=== PATIENT | male | born 1950 | race Caucasian/White ===

== ENCOUNTER 2018-04-29 08:14 | Emergency (ER) | payer OTHER, MEDICARE ==
[~2018-04-29] VITALS: Ht 172.7 cm; Wt 95.3 kg
--- NOTE | ~2018-04-29 | EKG ---
[place] [address] [facility] [place] [address] ELECTROCARDIOGRAM REPORT Name: RADHA LOMBARDI Room #: DEP Ronald#: [id number] Admission: 04/29/18 Attend Phys: Discharge: 04/29/18 Date of : 48 Report #: [id number] THIS REPORT FOR: //name// [facility] ED Test Date: 2018-04-29 Test Time: 08:54:07 Pat Name: RADHA LOMBARDI Department: Room: Gender: Director Of Strategic Programs: Diane DAVEY : 1950 Requested By: Morgan Montanez Order Number: [id number] MD: Portillo Matthews Measurements Intervals [place] Rate: 80 P: 49 NV: 174 QRS: -27 QRSD: 100 T: 30 QT: 429 QTc: 495 Interpretive Statements Sinus rhythm Borderline left axis deviation Borderline T abnormalities, anterior leads Borderline prolonged QT interval Compared to ECG 05/29/2013 18:09:18 Sinus tachycardia no longer present Electronically Signed On 04-30-2018 12:45:41 CDT by Portillo Matthews [email or web address] <ELECTRONICALLY SIGNED> By: Portillo Matthews MD, [facility] 04/30/18 [phone] Portillo Matthews MD, [facility] /EPI
[~2018-04-29 08:14] MED LIST: ACTOS 30 MG TAB30 M1 PO; ACTOS 45 MG45 M1 PO; ADULT LOW DOSE81 MG PO; ASPIRIN81 M2 PO; BACTRIM DS TAB1 EACH PO; COZAAR 25 MG TA25 MG PO; COZAAR100 MG PO; EFFEXOR XR150 MG PO; FOLTX1 TAB PO; GLUCOPHAGE1000 MG PO; GLUCOPHAGE500 MG PO; GLUMETZA1000 PO; JANUVIA100 MG PO; JANUVIA50 MG PO; MAGOX 400400 MG PO; MULTIVITAMINS PO; NIASPAN 500 MG500 M1 PO; TRICOR145 MG PO; TRICOR48 MG PO; VENLAFAXINE HCL25 MG PO; VITAMIN D32000 UNIT PO; VYTORIN 10-201 EACH PO; VYTORIN 10-401 EACH PO; ZETIA10 MG PO
[2018-04-29 08:50] LABS: ABSOLUTE NEUTROPHILS 7.1 thou/uL (1.4-8.2); BASOPHILS 0.7 % (0.0-2.0); EOSINOPHILS 0.9 % (0.0-3.0); HEMATOCRIT 43.2 % (42.0-52.0); HEMOGLOBIN 14.7 gm/dL (14.0-18.0); LYMPHOCYTES 16.9 % (24.0-44.0); MCH 28.3 pg (26.0-34.0); MCV 83.2 fL (80.0-100.0); MONOCYTES 6.9 % (1.0-8.0); PLATELET COUNT 306 thou/uL (150-400); POLYS 74.6 % (36.0-66.0); RBC 5.19 mil/uL (4.50-6.00); RDW 14.8 % (10.5-14.5); WBC 9.5 thou/uL (4.0-11.0)
[2018-04-29 09:06] LABS: ANION GAP 13 mmol/L (7-16); BUN 20 mg/dL (7-18); CHLORIDE 104 mmol/L (98-107); CO2 20 mmol/L (21-32); CREATININE 1.3 mg/dL (0.7-1.3); GLUCOSE 152 mg/dL (74-106); POTASSIUM 3.6 mmol/L (3.5-5.1); SODIUM 137 mmol/L (136-145)
[2018-04-29 09:14] LABS: ALBUMIN 3.8 g/dL (3.4-5.0); LIPASE 135 U/L (73-393); SGOT 25 U/L (15-37); SGPT 29 U/L (30-65); TOTAL BILIRUBIN 0.7 mg/dL (<0.1-1.0); TOTAL PROTEIN 7.2 g/dL (6.4-8.2)
[2018-04-29 09:15] LABS: TROPONIN-I < 0.04 ng/mL (<0.06)
[2018-04-29] MEDS ORDERED: ANTIVERT25 MG PO (09:22)
== END 2018-04-29 09:52 | disposition home or self-care (01) ==
LOC: ER 08:14
PROVIDERS: Emergency Medicine
DX: R11.2 Nausea with vomiting, unspecified (principal); R42 Dizziness and giddiness; I10 Essential (primary) hypertension; E11.9 Type 2 diabetes mellitus without complications; E78.5 Hyperlipidemia, unspecified

== ENCOUNTER → 2018-06-11 | Outpatient (CLI) | payer OTHER, MEDICARE ==
[~2018-06-11] VITALS: Ht 170.2 cm; Wt 88.0 kg
[~2018-06-11] MED LIST changes: +ANTIVERT25 MG PO; +ASPIR 8181 MG PO; +ATORVASTATIN CA40 MG PO; +CENTRUM SILVER1 EAC2 PO; +FOLINIC-PLUS C1 EACH PO; +VITAMIN D-32000 UNIT PO; +WELLBUTRIN SR150 MG PO
--- NOTE | ~2018-06-11 | P ---
[facility] [place] [address] PROCEDURE REPORT Name: RADHA LOMBARDI Room #: REG [facility].#: [id number] Admission: 06/11/18 Attend Phys: Carlos Eduardo Hernandez Discharge: Date of : 48 Report #: [id number] THIS REPORT FOR: //name// CC: Carlos Eduardo Narayan MD DATE OF SERVICE: 06/11/2018 PROCEDURE PERFORMED: Colonoscopy with biopsies. HISTORY OF PRESENT ILLNESS: The patient is a 67-year-old male who presents today for routine screening colonoscopy. He denies any symptoms. No family history of colon cancer. DESCRIPTION OF PROCEDURE: The risks and benefits of the procedure were explained to the patient, those risks including but not limited to bleeding, perforation, the risk of sedation. He understood these risks and gave informed consent. Sedation was given using propofol per anesthesia. Next, a digital rectal exam was initially performed, which was normal. Next, using a standard Olympus colonoscope, the scope was placed in the patient's anus and advanced under direct vision to the cecum. The overall prep was excellent. The cecum and ileocecal valve were normal in appearance. In the ascending colon, there was a 3-mm sessile polyp. This was removed with cold forceps. The transverse, descending and sigmoid colon were all normal. The rectal mucosa was normal. On retroflexion, small nonbleeding internal hemorrhoids were noted, otherwise normal colonoscopy. Scope was then withdrawn and the procedure terminated. The patient tolerated the procedure well. IMPRESSION: 1. Ascending colon polyp. 2. Small internal hemorrhoids. 3. Otherwise, normal colonoscopy. RECOMMENDATIONS: 1. Await biopsy results. 2. If polyp is hyperplastic, repeat in 10 years; if adenomatous polyp, repeat in 5 years. Thank you for allowing me to participate in his care. By: [id number] Carlos Eduardo Myrick MD /nt
--- NOTE | ~2018-06-11 | PATH ---
[facility] [address] [place] [address] PATHOLOGY RPT PROCEDURE Name: RADHA LOMBARDI Room #: REG CLI M.R.#: [id number] Admission: 06/11/18 Date of : 48 Discharge: Report #: [id number] Path Case #: [id number] [facility] Accession Number: [id number] . 01 Material submitted: . ASCENDING COLON POLYP . 01 Clinical history: . Pre-Op DX: Screening Post-Op DX: Ascending colon polyp . 02 Diagnosis: Polyp, ascending colon polyp, endoscopic biopsy: - Hyperplastic polyp. - Negative for dysplasia. (IUV/db; 06/14/18) LBQ/06/14/2018 . 02 Electronically signed: . Alexandra Muir MD, Pathologist NPI- [id number] . 01 Gross description: . Received in formalin labeled "Radha Lombardi, ascending colon polyp," are 2 segments of cheek soft tissue measuring 0.7 x 0.3 x 0.2 cm in aggregate dimensions and ranging from 0.3 to 0.4 cm in maximum dimension. The specimen is submitted entirely in cassette A1. (TSD; 06/11/2018) TOB/TOB . 02 Pathologist provided ICD-10: K63.5 . 02 CPT . 305584 Performed at: [address], [place] [id number] MD Kade Chopra MD Phone: [phone] Performed at: [address] [id number] MD Alexandra Muir MD Phone: [phone]
== END | disposition home or self-care (01) ==
LOC: GI 07:23
DX: Z12.11 Encounter for screening for malignant neoplasm of colon (principal); K63.5 Polyp of colon; K64.8 Other hemorrhoids; I10 Essential (primary) hypertension; E11.9 Type 2 diabetes mellitus without complications; E78.5 Hyperlipidemia, unspecified; F32.9 Major depressive disorder, single episode, unspecified; F41.9 Anxiety disorder, unspecified; Z98.0 Intestinal bypass and anastomosis status; Z79.899 Other long term (current) drug therapy; Z98.890 Other specified postprocedural states
CPT/HCPCS: 62110; 62900

== ENCOUNTER 2018-11-07 12:34 | Emergency (ER) | payer OTHER, MEDICARE ==
[~2018-11-07] VITALS: Ht 172.7 cm; Wt 92.5 kg
[2018-11-07] MEDS ORDERED: NORCO 5-325 TA1 EACH PO (13:57)
[2018-11-07] MEDS ORDERED: CYCLOBENZAPRINE5 MG PO (13:57)
[2018-11-07 13:59] VITALS: BP 133/74
== END 2018-11-07 14:37 | disposition home or self-care (01) ==
LOC: ER 12:34
DX: M51.26 Other intervertebral disc displacement, lumbar region (principal); M48.061 Spinal stenosis, lumbar region without neurogenic claudication; M79.605 Pain in left leg; E11.9 Type 2 diabetes mellitus without complications; I10 Essential (primary) hypertension; E78.5 Hyperlipidemia, unspecified; F32.9 Major depressive disorder, single episode, unspecified; Z90.49 Acquired absence of other specified parts of digestive tract; Z98.890 Other specified postprocedural states; Z88.8 Allergy status to other drugs, medicaments and biological substances

== ENCOUNTER → 2018-11-19 | Outpatient (CLI) | payer OTHER, MEDICARE ==
[~2018-11-19] VITALS: Ht 170.2 cm; Wt 90.7 kg
[~2018-11-19] MED LIST changes: +CYCLOBENZAPRINE5 MG PO; +NORCO 5-325 TA1 EACH PO
--- NOTE | ~2018-11-19 | HPC ---
[facility] [address] [place] [address] PAIN MANAGEMENT CONSULTATION Name: RADHA LOMBARDI Room #: REG CL [facility].#: [id number] Admission: 11/19/18 Attend Phys: Alonso Mckeon MD Discharge: Date of : 48 Report #: [id number] THIS REPORT FOR: //name// CC: Alonso Narayan DATE OF SERVICE: 11/19/2018 CHIEF COMPLAINT: Left leg pain. HISTORY OF PRESENT ILLNESS: The patient is a 68-year-old gentleman who has been referred to the Pain Clinic for evaluation of back and leg pain. The patient noticed that in 10/2018, the pain was developed in his back and leg. The patient states he simply woke up and noticed sharp pain in the anterior portion of his leg. This pain radiated from the front of his leg down to the area of the knee. He notes that walking has been more problematic. Notes that prolonged standing can exacerbate his pain. He has been told that when he walks he walks in a bent over forward extending manner. Denies any trauma. He has had no injury. No problem with his bowel or bladder function. Overall, things are going reasonably well until he woke up on the morning of the 11/04/2018 with pain, which has been quite severe. He is not sure of anything that has made it better. Describes as continuous, sharp and rates it as a 9 out of 10. ALLERGIES: VINEGAR. CURRENT MEDICATIONS: Aspirin 81 mg, vitamin D3 4000 units daily, multivitamin with minerals, Centrum Men's, Wellbutrin-SR 150 mg, Lipitor 40 mg, Effexor 150 mg b.i.d., Actos 30 mg, metformin 1000 mg b.i.d., Cozaar 100 mg, TriCor 145 mg, Folinic-Plus caplet. PAST MEDICAL HISTORY: 1. Noninsulin dependent diabetes. 2. Hypertension. 3. Hyperlipidemia. 4. Depression. PAST SURGICAL HISTORY: Ruptured appendix about 20 years ago, infected colon, umbilical hernia repair about 10 years ago, which has infected colon, colon resection. SOCIAL HISTORY: He is retired. REVIEW OF SYSTEMS: Generally good health, wears glasses, wakens at night to urinate, non-insulin dependent diabetes. LABORATORY DATA: CT of the lumbar spine dated 11/07/2018: [address] [address] PAIN MANAGEMENT CONSULTATION Name: RADHA LOMBARDI [id number] Admission: 11/19/18 Attend Phys: Alonso Mckeon MD Discharge: Date of : 48 Report #: [id number] 1. L2-L3, there is no significant disk bulge or throat protrusion identified. There is no significant central spinal canal or neural foraminal stenosis. 2. At L3-L4, there is a broad-based posterior disk bulge, which effaces the ventral thecal sac. There is mild thecal sac stenosis. There is mbyj-iq-vizoxwjt foraminal stenosis due to foraminal disk bulging and facet spurring with aaea-dy-ywlbrwfx facet arthropathy or facet arthrosis.. 3. At L4-L5, there is broad-based posterior disk osteophyte complex. There is thickening of the ligamentum flavum that is resulting severe central spinal canal stenosis with narrowing of the thecal sac to 5.5 mm. There is moderate bilateral facet arthrosis. There is foraminal disk bulging and facet spurring resulting in moderate medial foraminal stenosis. 4. At L5-S1, there is no significant disk bulge or protrusion identified. There is no significant central spinal canal or neural foraminal stenosis. PAIN CLINIC ASSESSMENT/PQRS: 1. History of osteoarthritis. The patient has some arthritic changes in the lower portion of his back as per the CT. 2. History of rheumatoid arthritis. The patient is not being treated for rheumatoid arthritis. 3. Height 5 feet 7 inches, weight 200 pounds, BMI 31.7. 4. Vital signs: Blood pressure 156/99, pulse 93, respiratory rate 16, room air saturation 97%. 5. Pain intensity, 9/10. 6. Fall risk. The patient has not fallen in the last 3 months. 7. Blood thinner. The patient is not on a blood thinning medication. 8. Hypertension. The patient is being treated for hypertension. 9. Opioids greater than 6 weeks. The patient is not on opioid regimen. 10. Risk assessment tool, low for opioid use. 11. Functional assessment tool. 12. Recreational drug use. The patient denies use of recreational drugs. 13. Tobacco: The patient has never smoked. 14. Alcohol: The patient denies use of alcoholic beverages. PHYSICAL EXAMINATION: GENERAL: The patient is a well-developed, well-nourished white male. Appears his stated age. He is alert and oriented x 3. Affect is appropriate. Speech is fluent. HEENT: Normocephalic, atraumatic. Extraocular eye muscles intact. Sclerae nonicteric. Mucous membranes are moist. NECK: Without adenopathy or JVD. HEART: Regular rate. S1, S2. ABDOMEN: Nontender. Bowel sounds present. EXTREMITIES: Lower extremity, the patient has some pain and discomfort in lower portion of his back. He walks with a forward lean bend. He complains of pain and discomfort as radiating down into his left anterior thigh in the L3-L4 dermatomal distribution. Has perception of some numbness in this area. Walks [facility] [address] [place] [address] PAIN MANAGEMENT CONSULTATION Name: RADHA LOMBARDI Room #: REG CLI [facility].#: [id number] Admission: 11/19/18 Attend Phys: Alonso Mckeon MD Discharge: Date of : 48 Report #: [id number] with an antalgic gait. Stomach is a little bit when going from the sitting position to the standing position off the bed. Has pain and discomfort in the low back area, which is exacerbated on the left side with his left leg hanging in a dependent position. Carlos sign is negative. IMPRESSION: 1. Lumbar radiculopathy, L3-L4 dermatomal distribution on the left. 2. Noninsulin dependent diabetes. 3. Hypertension. 4. Hyperlipidemia. 5. Depression. RECOMMENDATIONS: We discussed treatment options with the patient. Risks and benefits of an epidural steroid injection were discussed. Possible complications of the procedure, which could include infection, worsening of pain, no improvement in pain, nerve damage, bleeding, spinal headache were discussed with the patient. He elects to proceed. PROCEDURE NOTE: The patient was assisted in getting on the examination table. He is able to lie on the exam table in the prone position. Did have some pain and discomfort and has some increased discomfort while lying prone. His back was sterilely prepped with a Betadine solution. A 0.25% bupivacaine was used to identify the L3-L4 interspace. This was on the left side. A 17-gauge Tuohy with loss of resistance technique was used to gain access to the epidural space. There was no CSF, heme or paresthesia. Total of 80 mg Depo-Medrol, 40 mg triamcinolone and 2 mL of 0.25% bupivacaine was injected. The patient tolerated the procedure well. There were no complications. Fluoroscopy was used with anterior and posterior as well as lateral imaging. The patient was then after the procedure was completed, taken to the recovery room where he remained for an appropriate amount of time. Pain decreased from a total of 9/10 to 2/10. He received 12 seconds of fluoroscopy time. We would like to thank you for letting us participate in his care. We hope he continues to improve. By: [id number] Alonso Mckeon MD /[place]ille
[2018-11-19 13:08] VITALS: BP 156/99
--- NOTE | 2018-11-19 13:34 | NUR ---
Pain Clinic Assessment: 1. History of Osteoarthritis: NO History of Rheumatoid Arthritis: NO 2. Height: 5 ft. 7 in. 170.2 cm. Weight: 200.0 lb. oz. 90.720 kg. Patient's BMI: 31.3 3. Vital Signs: BP: 156/99 Pulse: 93 Resp: 16 Temp: 02 Sat: 97 ECG Mon: 4. Pain Intensity: 9 5. Fall Risk: Dizziness: N Needs help standing or walking: N Fallen in the last 3 months: N Fall risk comments: 6. Patient on Blood Thinner: None 7. History of Hypertension: Y 8. Opioid Therapy greater than 6 weeks: N Opiate Contract Signed: 9. Risk Assessment Tool Provided: 10. Functional Assessment Tool: 11. Recreational Drug Use: Never Drug Type: Tobacco Use: Never Smoker Tobacco Type: Amount or Packs/day: How Many Years: Alcohol Use: No Frequency: Quant:
== END | disposition home or self-care (01) ==
LOC: PAIN 06:56
DX: M54.16 Radiculopathy, lumbar region (principal); E11.9 Type 2 diabetes mellitus without complications; I10 Essential (primary) hypertension; E78.5 Hyperlipidemia, unspecified; F32.9 Major depressive disorder, single episode, unspecified; M19.90 Unspecified osteoarthritis, unspecified site; Z88.8 Allergy status to other drugs, medicaments and biological substances; Z79.82 Long term (current) use of aspirin; Z79.899 Other long term (current) drug therapy; Z79.84 Long term (current) use of oral hypoglycemic drugs; Z98.890 Other specified postprocedural states

== ENCOUNTER → 2018-12-08 | Outpatient (CLI) | payer OTHER, MEDICARE ==
[~2018-12-08] VITALS: Ht 172.7 cm; Wt 95.8 kg
--- NOTE | ~2018-12-08 | HPC ---
[facility] [address] [place] [address] PAIN MANAGEMENT CONSULTATION Name: RADHA LOMBARDI Room #: REG CL M..#: [id number] Admission: 12/08/18 Attend Phys: Alonso Mckeon MD Discharge: Date of : 48 Report #: [id number] THIS REPORT FOR: //name// CC: Alonso Narayan DATE OF SERVICE: 12/08/2018 CHIEF COMPLAINT: Pain in the left leg. FOLLOWUP HISTORY: The patient is a 68-year-old gentleman who has been seen in the pain clinic. He is suffering from pain in the low back area. Pain began in October 2018. It involves his low back and left leg. He underwent an epidural steroid injection. He gleaned benefit from this. He rates his pain today as a 3/10. He has had no complications. Overall, the pain is improved and he would like to proceed with another epidural steroid injection. Has pain that radiates down into the anterior portion of his thigh. Denies any bowel or bladder dysfunction. As you recall, he denies history of trauma. He simply awoke in October on the with severe pain in the anterior portion of his leg. ALLERGIES: VINEGAR. CURRENT MEDICATIONS: Aspirin 81 mg, vitamin D3 4000 units, multivitamins with minerals, Centrum Men's, Wellbutrin-SR 150 mg, Lipitor 40 mg, Effexor 150 mg b.i.d., Actos 30 mg, metformin 1000 mg b.i.d., Cozaar 100 mg, TriCor 145 mg, Folinic-Plus caplets. PAIN CLINIC ASSESSMENT/PQRS: 1. The patient is complaining of pain in the low back area. Has some arthritic changes in the lower portion of his back on CT. 2. Rheumatoid arthritis. The patient has not been treated for rheumatoid arthritis. 3. Height 5 feet 7 inches, weight 211 pounds, BMI is 32.1. 4. Vital signs: Blood pressure is 160/86, pulse is 97, respiratory rate 16, room air saturation 99%. 5. Pain intensity 01/16. 6. Fall risk. The patient has not fallen in the last 3 months. 7. Blood thinner. The patient is not on blood thinning medication. 8. Hypertension. The patient states he is not being treated for hypertension. 9. Opioid greater than 6 weeks. 10. Risk assessment tool, low for opioid use. 11. Functional assessment tool . 12. Drug use recreational, the patient denies use of recreational drugs. 13. Tobacco: The patient does not smoke. 14. Alcohol: The patient denies use of alcoholic beverages. [address] [address] PAIN MANAGEMENT CONSULTATION Name: RAD[facility]ARDI [id number] Admission: 12/08/18 Attend Phys: Alonso Mckeon MD Discharge: Date of : 48 Report #: [id number] PHYSICAL EXAMINATION: GENERAL: The patient is a well-developed, well-nourished white male. Appears his stated age. He is alert and oriented x 3. Affect is appropriate. Speech is fluent. HEAD, EYES, EARS, NOSE, AND THROAT: Normocephalic, atraumatic. Extraocular eye muscles intact. Sclerae nonicteric. Mucous membranes are moist. NECK: Without adenopathy or JVD. HEART: Regular rate. S1, S2. ABDOMEN: Nontender. Bowel sounds present. EXTREMITIES: Upper extremity muscle strength is judged to be 5-/5 for the major muscle groups in the upper extremity. The patient has some pain and discomfort in the lower portion of his back. The patient without significant scoliosis, kyphosis or lordosis. He has been walking with a forward lean. States that is having less of this since he had last injection. The patient has complaint of pain, is radiating down to the left thigh in the L3-L4 dermatomal distribution. Has some numbness in this area, which is improving. Has a left antalgic gait. IMPRESSION: 1. Lumbar radiculopathy, L3-L4 dermatomal distribution on the left. 2. Non-insulin dependent diabetes. 3. Hypertension. 4. Hyperlipidemia. 5. Depression. RECOMMENDATIONS: We discussed treatment options with the patient. Risks and benefits of an epidural steroid injection were again reviewed. Possible complications of the procedure, which could include infection, worsening of pain, no improvement in pain, nerve damage, and paralysis were discussed and the patient elects to proceed. PROCEDURE NOTE: The patient was placed in the prone position. Fluoroscopy was used to identify the L3-L4 interspace. Fluoroscopy using anterior, posterior as well as lateral viewing were implemented. The patient's back was sterilely prepped with a Betadine solution. A 25-gauge needle was injected into this area and 0.25% bupivacaine was used to numb it. A 17-gauge Tuohy with loss of resistance technique was used to gain access to the interspace between the L3-L4 area. A total of 80 mg Depo-Medrol, 40 mg triamcinolone and 2 mL of 0.25% bupivacaine was injected. The patient tolerated the procedure well. There were no complications. He remained in the pain clinic for an appropriate amount of time. He will follow up in the future as needed. Pain decreased to 1 at the time of discharge, 18 seconds fluoroscopy time was used. By: [id number] Alonso Mckeon MD /CORAL
[2018-12-08 08:26] VITALS: BP 160/86
--- NOTE | 2018-12-08 08:30 | NUR ---
Pain Clinic Assessment: 1. History of Osteoarthritis: NO History of Rheumatoid Arthritis: NO 2. Height: 5 ft. 8 in. 172.7 cm. Weight: 211.2 lb. oz. 95.800 kg. Patient's BMI: 32.1 3. Vital Signs: BP: 160/86 Pulse: 97 Resp: 16 Temp: 02 Sat: 99 ECG Mon: 4. Pain Intensity: 3 5. Fall Risk: Dizziness: N Needs help standing or walking: N Fallen in the last 3 months: N Fall risk comments: 6. Patient on Blood Thinner: None 7. History of Hypertension: Y 8. Opioid Therapy greater than 6 weeks: N Opiate Contract Signed: 9. Risk Assessment Tool Provided: LOW 10. Functional Assessment Tool: 11. Recreational Drug Use: Never Drug Type: Tobacco Use: Never Smoker Tobacco Type: Amount or Packs/day: How Many Years: Alcohol Use: No Frequency: Quant:
== END | disposition home or self-care (01) ==
LOC: PAIN 06:51
DX: M54.16 Radiculopathy, lumbar region (principal); G89.29 Other chronic pain; I10 Essential (primary) hypertension; E11.9 Type 2 diabetes mellitus without complications; E78.5 Hyperlipidemia, unspecified; F32.9 Major depressive disorder, single episode, unspecified; Z88.8 Allergy status to other drugs, medicaments and biological substances; Z79.82 Long term (current) use of aspirin; Z79.899 Other long term (current) drug therapy; Z98.890 Other specified postprocedural states

== ENCOUNTER → 2020-12-27 | Outpatient (CLI) | payer OTHER, MEDICARE ==
[2020-12-27 09:37] LABS: CREATININE 1.4 mg/dL (0.7-1.3)
== END ==
LOC: CAT 08:50
PROVIDERS: ATTEND Family Medicine
DX: K57.30 Diverticulosis of large intestine without perforation or abscess without bleeding (principal); K42.9 Umbilical hernia without obstruction or gangrene; K43.9 Ventral hernia without obstruction or gangrene; M47.816 Spondylosis without myelopathy or radiculopathy, lumbar region; N28.1 Cyst of kidney, acquired